=== PATIENT | male | born 1995 | race Caucasian/White ===

== ENCOUNTER 2018-05-23 07:17 | Emergency (ER) | payer OTHER ==
[2018-05-23 07:55] LABS: #Basophils 0.1 thou/uL (0.0-0.2); #Eosinphils 0.1 thou/uL (0.0-0.7); #Monocytes 0.3 thou/uL (0.11-0.59); #Neutrophils 2.9 thou/uL (1.40-6.50); %Basophils 1.3 % (0.0-1.0); %Eosinophils 2.2 % (0.0-10.0); %Lymphocytes 37.1 % (21.0-51.0); %Monocytes 6.1 % (0.0-10.0); %Neutrophils 53.4 % (42.0-75.0); Hemoglobin 15.7 g/dL (14.0-18.0); Mean Corpuscular HGB CONC 33.5 g/dL (32.0-36.0); Mean Corpuscular Hemoglobin 30.1 pg (27.0-31.0); Mean Platelet Volume 7.9 fL (7.4-10.4); Platelet Count 207 thou/uL (130-400); RBC Distribution Width 11.6 % (11.5-14.5); White Blood Cell (WBC) Count 5.5 thou/uL (4.8-10.8)
[2018-05-23 08:05] LABS: Bilirubin Negative (Negative); Blood, Urine Large (Negative); Clarity CLEAR (Clear); Glucose, Urine (Dipstick) Negative (Negative); Leukocyte Negative (Negative); Nitrite Negative (Negative); Protein, Urine (Dipstick) Negative (Neg-Trace); Specific Gravity, Urine 1.018 (1.002-1.036)
[2018-05-23 08:08] LABS: Bacteria/HPF None Seen HPF (None Seen); Hyaline Casts/LPF 0-3 HYALINE CAST LPF (0-3 Hyaline); Pathc Cast-AUWi Flag 0.29 (0-2.49); RBC/HPF GREATER THAN 50-TNTC HPF (0-3); Squamous Epithelial None Seen HPF (0-3); WBC/HPF 0-3 HPF (0-3)
[2018-05-23 08:34] LABS: ALT (SGPT) 10 U/L (8-55); AST (SGOT) 16 U/L (5-34); Albumin 4.9 g/dL (3.5-5.0); Alkaline Phosphatase 84 U/L (40-150); Anion Gap 13 mmol/L (10-20); BUN (Urea Nitrogen) 11 mg/dL (8.9-20.6); Bilirubin, Total 1.3 mg/dL (0.2-1.2); Calc. Creatinine Clearance 0 mL/min (70-130); Calcium 9.7 mg/dL (7.8-10.44); Carbon Dioxide 23 mmol/L (22-29); Chloride 108 mmol/L (98-107); Estimated GFR-MDRD Greater than 90; Globulin 2.6 g/dL (2.4-3.5); Glucose 101 mg/dL (70-105); Lipase 14 U/L (8-78); Potassium 3.8 mmol/L (3.5-5.1); Protein, Total 7.5 g/dL (6.0-8.3); Sodium 140 mmol/L (136-145)
--- NOTE | 2018-05-23 09:56 | CT ---
CT OF ABDOMEN AND PELVIS PERFORMED WITH INTRAVENOUS CONTRAST ENHANCEMENT: History: Right testicular and right lower quadrant pain. FINDINGS: The lung bases are clear. The liver, spleen, pancreas and gallbladder regions appear unremarkable. Right and left adrenal glands and right and left kidneys are normal in size. No obstruction of either kidney. No renal calculi. No significant periaortic adenopathy. There are small mesenteric nodes whi ch are nonspecific. CT OF PELVIS PERFORMED WITH CONTRAST ENHANCEMENT: The appendix appears unremarkable. There is suggestion of a punctate calcification in the base of the bladder. This could be volume averaging and not truly within the bladder. It has the appearance of a possible small bladder stone, possibly the patient has passed a calculus. Clinical correlation as to whether symptoms were felt to be related to renal colic type symptoms. Consideration for strained ur ine to see if a stone is present would be recommended. IMPRESSION: 1. Normal appendix. 2. No obstruction of either kidney or renal calculi. 3. Calcification which is near and probably within the base of the bladder. This raises the possibili ty that the patient has had a past ureteral stone. POS: KATHARINE
[2018-05-23] MEDS ORDERED: ISOVUE-370 76%-LOCM 1 ML ONE (13:55)
== END 2018-05-23 10:40 | disposition home or self-care (01) ==
LOC: ERS 07:17
DX: R10.31 Right lower quadrant pain (principal); R31.9 Hematuria, unspecified
CPT/HCPCS: 74177; 80053; 81003; 81015; 83690; 85025; 96360; 96361